=== PATIENT | female | born 1985 | race Caucasian/White ===

== ENCOUNTER 2021-08-07 10:53 | Outpatient (CLI) | payer SELFPAY ==
[~2021-08-07] VITALS: Ht 152.4 cm; Wt 86.2 kg
[~2021-08-07 10:53] MED LIST: NITR100C3 PO; PHENERGAN; PREN1TAB39
[2021-08-07] MEDS ORDERED: ONDANSETRON 4 MG/2 ML (SDV) Z0FRAN IV PRN (11:00)
[2021-08-07] MEDS ORDERED: diphenhydrAMINE 50 MG/ML INJ (BENADRYL) IV PRN (11:00)
[2021-08-07] MEDS ORDERED: SOTROVIMAB 500 MG/NS 50 ML IVPB IV ONE ×2 (11:00)
[2021-08-07] MEDS ORDERED: EPINEPHrine INJECTION 1 MG/ML AMP IM PRN (11:00)
[2021-08-07] MEDS ORDERED: ACETAMINOPHEN 500 MG TAB (TYLENOL) PO PRN (11:00)
[2021-08-07 11:11] VITALS: BP 113/61
[2021-08-07 12:05] VITALS: BP 113/58
== END 2021-08-07 12:05 | disposition home or self-care (01) ==
LOC: INFUSION 10:53
PROVIDERS: ATTEND Pediatrics
DX: U07.1 COVID-19 (principal)

== ENCOUNTER 2022-08-28 18:19 | Emergency (ER) | payer BC ==
[~2022-08-28] VITALS: Ht 152.4 cm; Wt 83.0 kg
[2022-08-28 18:28] VITALS: BP 128/85
--- NOTE | 2022-08-28 18:41 | ED Headache ---
General Stated Complaint: HEADACHE, VISUAL DISTURBANCE, SINUS DRAINAGE Source: patient History of Present Illness Date Seen by Provider: Aug 28, 2022 Time Seen by Provider: 18:38 Initial Comments PT ARRIVES VIA POV FROM HOME C/O HEADACHE X 1 WEEK--HAS CHRONIC HEADACHES, STATES SHE FEELS LIKE HER HEAD IS IN A VICE PAIN IS MOSTLY TO BACK OF HEAD ALSO HAS CHRONIC SINUS INFECTIONS, HAS AN APPOINTMENT WITH OFFICE ASSISTANT 10/14/22. HAS CHRONIC SINUS DRAINAGE AND PRESSURE HAD VISION CHANGES EARLIER IN THE WEEK, BRIEFLY--BLURRY VISION. VISION IS NORMAL NOW. NO FEVER NO NAUSEA/VOMITING NO DIZZINESS NO PARESTHESIAS OR MOTOR DEFICITS TOOK IBUPROFEN AT 1515--NO RELIEF TAKES ZYRTEC AND EDY DAILY FOR SINUSES. SHE HAS NOT BEEN ON ANY ANTIBIOTICS IN A LONG TIME. SYMPTOMS ARE NO DIFFERENT TODAY IN ANY WAY (WEDNESDAY EVENING) HAS NOT SOUGHT CARE UNTIL TODAY LMP 3 WEEKS AGO. NORMAL. S/P BTL PT HAS HAD COVID VACCINE X 2. NO FLU VACCINE PCP: [facility] Allergies and Home Medications Allergies Coded Allergies: No Known Drug Allergies (Verified Allergy, Unknown, 10/31/09) Patient Home Medication List Home Medication List Reviewed: Yes , (Reported) Entered as Reported by: SHREYAS EVANS on 03/28/091946 Amoxicillin/Potassium Clav (Amox Tr-K Clv 875-125 mg Tab) 875 Mg-125 Mg Tablet, 1 EACH PO BID Prescribed by: EYAD BOONE on 08/28/221940 Azelastine HCl (Azelastine HCl) 137 Mcg (0.1 %) Mccarley.pump, 137 MCG NS BID Prescribed by: EYAD BOONE on 08/28/221940 Cetirizine HCl/Pseudoephedrine (Zyrtec-D Tablet) 5 Mg-120 Mg Tab.er.12h, 1 EACH PO BID Prescribed by: EYAD BOONE on 08/28/221941 Fluticasone Propionate (Flonase Allergy Relief) 50 Mcg/Actuation Mccarley.susp, 2 SPRAY NS DAILY Prescribed by: EYAD BOONE on 08/28/221940 Ketorolac Tromethamine (Ketorolac Tromethamine) 10 Mg Tablet, 10 MG PO Q6H Prescribed by: EYAD BOONE on 08/28/221941 Vits W-Ca,Fe,Fa(<1MG) () 1 Each Tablet, (Reported) Entered as Reported by: SHREYAS EVANS on 03/28/091946 Review of Systems Review of Systems Constitutional: no symptoms reported; No chills, No diaphoresis, No dizziness, No fever, No malaise, No weakness Eyes: See HPI, Blurred Vision, Vision Changes Ears, Nose, Mouth, Throat: see HPI, nose discharge Respiratory: no symptoms reported Cardiovascular: no symptoms reported Gastrointestinal: no symptoms reported Genitourinary: no symptoms reported Musculoskeletal: no symptoms reported Skin: no symptoms reported Psychiatric/Neurological: See HPI, Headache; Denies Numbness, Denies Paresthesia, Denies Tingling, Denies Weakness Past Dnhjzzr-Xvpcxk-Suyvpa Hx Patient Social History Tobacco Use?: No Smoking Status: Never a Smoker Use of E-Cig and/or Vaping dev: No Substance use?: No Alcohol Use?: No Seasonal Allergies Seasonal Allergies: Yes Past Medical History Surgeries: Yes ( 2001) Section, Tubal Ligation Respiratory: No (HAD COVID 07/2021--HAD MAB INFUSION) Cardiac: No Neurological: Yes Headaches /Migraines : No Last Menstrual Period: Aug 07, 2022 Reproductive Disorders: No 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 oz. kg; BMI Method: General Appearance: WD/WN, no apparent distress HEENT: PERRL/EOMI, normal ENT inspection, TMs normal, pharynx normal, other (MILD MAXILLARY AND FRONTAL SINUS TENDERNESS. ) Neck: non-tender, full range of motion, supple, normal inspection Cardiovascular: regular rate, rhythm, no murmur Respiratory: normal breath sounds, no respiratory distress, no accessory muscle use Gastrointestinal: non tender, soft Extremities: normal inspection, normal capillary refill Psychiatric: alert, oriented x 3 Crainal Nerves: normal hearing, normal speech, PERRL Coordination/Gait: normal gait Motor/Sensory: no motor deficit, no sensory deficit Skin: normal color, warm/dry Progress/Results/Core Measures Results/Orders Lab Results Laboratory Tests Test 08/28/22 18:41 08/28/22 19:00 Range/Units White Blood Count 8.9 4.3-11.0 10^3/uL Red Blood Count 5.01 3.80-5.11 10^6/uL Hemoglobin 13.8 11.5-16.0 g/dL Hematocrit 42 35-52 % Mean Corpuscular Volume 84 80-99 fL Mean Corpuscular Hemoglobin 28 25-34 pg Mean Corpuscular Hemoglobin Concent 33 32-36 g/dL Red Cell Distribution Width 13.4 10.0-14.5 % Platelet Count 302 130-400 10^3/uL Mean Platelet Volume 10.9 9.0-12.2 fL Immature Granulocyte % (Auto) 0 % Neutrophils (%) (Auto) 55 42-75 % Lymphocytes (%) (Auto) 36 12-44 % Monocytes (%) (Auto) 6 0-12 % Eosinophils (%) (Auto) 3 0-10 % Basophils (%) (Auto) 0 0-10 % Neutrophils # (Auto) 4.8 1.8-7.8 10^3/uL Lymphocytes # (Auto) 3.2 1.0-4.0 10^3/uL Monocytes # (Auto) 0.5 0.0-1.0 10^3/uL Eosinophils # (Auto) 0.3 0.0-0.3 10^3/uL Basophils # (Auto) 0.0 0.0-0.1 10^3/uL Immature Granulocyte # (Auto) 0.0 0.0-0.1 10^3/uL Erythrocyte Sedimentation Rate 9 0-20 MM/HR Sodium Level 137 135-145 MMOL/L Potassium Level 4.1 3.6-5.0 MMOL/L Chloride Level 108 H 98-107 MMOL/L Carbon Dioxide Level 20 L 21-32 MMOL/L Anion Gap 9 5-14 MMOL/L Blood Urea Nitrogen 17 7-18 MG/DL Creatinine 0.88 0.60-1.30 MG/DL Estimat Glomerular Filtration Rate 87 BUN/Creatinine Ratio 19 Glucose Level 90 70-105 MG/DL Calcium Level 9.1 8.5-10.1 MG/DL Corrected Calcium 9.0 8.5-10.1 MG/DL Magnesium Level 2.2 1.6-2.4 MG/DL Total Bilirubin 0.3 0.1-1.0 MG/DL Aspartate Amino Transf (AST/SGOT) 18 5-34 U/L Alanine Aminotransferase (ALT/SGPT) 23 0-55 U/L Alkaline Phosphatase 68 40-136 U/L C-Reactive Protein High Sensitivity 1.55 H 0.00-0.50 MG/DL Total Protein 7.3 6.4-8.2 GM/DL Albumin 4.1 3.2-4.5 GM/DL Serum Test, Qualitative NEGATIVE NEGATIVE Influenza Type A (RT-PCR) Not Detected Not Detecte Influenza Type B (RT-PCR) Not Detected Not Detecte SARS-CoV-2 RNA (RT-PCR) Not Detected Not Detecte My Orders Orders - EYAD BOONE DO Ed Iv/Invasive Line Start (08/28/22 18:35) Ct Head/Face/Cervical Wo (08/28/22 18:35) Cbc With Automated Diff (08/28/22 18:35) Comprehensive Metabolic Panel (08/28/22 18:35) Hs C Reactive Protein (08/28/22 18:35) Hcg,Qualitative Serum (08/28/22 18:35) Magnesium (08/28/22 18:35) Erythrocyte Sedimentation Rate (08/28/22 18:35) Ed Iv/Invasive Line Start (08/28/22 18:35) Lactated Ringers (Lr 1000 Ml Iv Solution (08/28/22 18:45) Covid 19 Inhouse Test (08/28/22 18:41) Influenza A And B By Pcr (08/28/22 18:41) Isolation Central Supply Req (08/28/22 18:41) Ketorolac Injection (Toradol Injection) (08/28/22 19:30) Medications Given in ED Current Medications Medications Dose Ordered Sig/Samantha Route Start Time Stop Time Status Last Admin Dose Admin Ketorolac Tromethamine 30 mg ONCE ONCE IVP 08/28/22 19:30 08/28/22 19:31 DC 08/28/22 19:25 30 MG Lactated Ringer's 1,000 ml @ 0 mls/hr Q0M ONCE IV 08/28/22 18:45 2/3/23 18:46 DC 08/28/22 18:46 999 MLS/HR Vital Signs/I&O 08/28/22 18:28 Temp 36.2 Pulse 61 Resp 17 B/P (MAP) 128/85 (99) O2 Delivery Room Air Progress Progress Note : Progress Note PPE WORN COVID AND FLU TESTING DONE GIVEN TORADOL FOR HEADACHE UNEVENTFUL ER STAY REVIEWED PRIOR RECORDS, ONLY ADMITS WERE FOR /DELIVERY. LAST ER VISIT WAS IN 2008 DISCUSSED TEST RESULTS, ANTICIPATED COURSE, SYMPTOMATIC TREATMENT, MEDICATIONS, NEED FOR FOLLOW UP AND RETURN PRECAUTIONS DISCUSSED WITH PT. Diagnostic Imaging Comments CT HEAD/MAXILLOFACIALS/CERVICAL SPINE--PER RADIOLOGIST REPORT AT 1919 Head: There is no intracranial hemorrhage. No hydrocephalus, cerebral edema, mass, mass effect nor evidence for an elevation of the intracranial pressures. The basilar cisterns patent. No sulcal effacement. The dodge-white matter differentiations maintained. There are no abnormal extra-axial collections and no calvarial fracture deformity demonstrated. Facial bones: Mandible, maxilla, and pterygoid plates intact. The nasal bones and bony nasal septum intact. The right frontal sinus is aplastic. The left frontal hypoplastic but clear. There is no mastoid effusion. The middle ear cavities clear. There is some mild membrane thickening in the maxillary sinus floors, greater right. No hemo-sinus or air-fluid level. There is rightward nasal septal spurring chronic. The zygomatic arches intact. The bony orbital baker intact. No post septal or retrobulbar orbital hematoma. Cervical spine: Degenerative changes to the discs, endplates and facets chronic. The alignment within normal limits. The vertebral statures unremarkable. No cervical fracture. No paraspinal hemorrhage. Hyoid and tracheal cartilage showed no traumatic deformity. The craniocervical relationship and the central skull base intact. IMPRESSION: CT HEAD: No hemorrhage or acute abnormality CT FACIAL BONES: Some chronic paranasal sinus membrane disease but no facial fracture or hemo-sinus. CT cervical spine: No fracture or traumatic malalignment Reviewed: Reviewed by Me Departure Impression Primary Impression: Chronic headaches Additional Impression: Chronic sinusitis Disposition: HOME, SELF-CARE Condition: Stable Departure-Patient Inst. Decision time for Depature: 19:33 Referrals: DRU DAVIDSON,LOCAL PHYSICIAN (PCP) Primary Care Physician [facility] Patient Instructions: Headache, Adult (DC), Sinusitis, Adult (DC) Add. Discharge Instructions: HOLD YOUR ZYRTEC AND EDY FOR NOW START TAKING ZYRTEC-D DAILY, PRESCRIBED YOU MAY TAKE TYLENOL NEEDED FOR PAIN FOLLOW UP WITH [facility] NEXT WEEK FOR FURTHER CARE Scripts Ketorolac Tromethamine (Ketorolac Tromethamine) 10 Mg Tablet 10 MG PO Q6H for Pain, #15 TAB Prov: EYAD BOONE DO 08/28/22 Amoxicillin/Potassium Clav (Amox Tr-K Clv 875-125 mg Tab) 875 Mg-125 Mg Tablet 1 EACH PO BID for 15 Days, #30 TAB Prov: EYAD BOONE DO 08/28/22 Azelastine HCl (Azelastine HCl) 137 Mcg (0.1 %) Mccarley.pump 137 MCG NS BID, #1 EA Prov: EYAD BOONE DO 08/28/22 Fluticasone Propionate (Flonase Allergy Relief) 50 Mcg/Actuation Mccarley.susp 2 SPRAY NS DAILY, #1 EACH 2 SPRAYS PER NOSTRIL DAILY X 2 DAYS THEN 1 SPRAY DAILY Prov: EYAD BOONE DO 08/28/22 Cetirizine HCl/Pseudoephedrine (Zyrtec-D Tablet) 5 Mg-120 Mg Tab.er.12h 1 EACH PO BID, #30 TAB Prov: EYAD BOONE DO 08/28/22 EYAD BOONE DO Aug 28, 2022 18:41
[2022-08-28] MEDS ORDERED: LACTATED RINGERS 1,000 ML IV ONE (18:45)
[2022-08-28 18:47] LABS: BASOPHILS % (AUTO) 0 % (0-10); EOSINOPHILS # (AUTO) 0.3 10^3/uL (0.0-0.3); EOSINOPHILS % (AUTO) 3 % (0-10); HEMATOCRIT 42 % (35-52); HEMOGLOBIN 13.8 g/dL (11.5-16.0); LYMPHOCYTES # (AUTO) 3.2 10^3/uL (1.0-4.0); LYMPHOCYTES % (AUTO) 36 % (12-44); MEAN CORPUSCULAR HEMOGLOBIN 28 pg (25-34); MEAN CORPUSCULAR HGB CONC 33 g/dL (32-36); MEAN CORPUSCULAR VOLUME 84 fL (80-99); MEAN PLATELET VOLUME 10.9 fL (9.0-12.2); MONOCYTES # (AUTO) 0.5 10^3/uL (0.0-1.0); MONOCYTES % (AUTO) 6 % (0-12); NEUTROPHILS # (AUTO) 4.8 10^3/uL (1.8-7.8); NEUTROPHILS % (AUTO) 55 % (42-75); PLATELET COUNT 302 10^3/uL (130-400); WHITE BLOOD COUNT 8.9 10^3/uL (4.3-11.0)
[2022-08-28 19:02] LABS: ALBUMIN 4.1 GM/DL (3.2-4.5); POTASSIUM 4.1 MMOL/L (3.6-5.0)
[2022-08-28 19:03] LABS: CALCIUM 9.1 MG/DL (8.5-10.1)
[2022-08-28 19:04] LABS: TOTAL PROTEIN 7.3 GM/DL (6.4-8.2)
[2022-08-28 19:06] LABS: BILIRUBIN,TOTAL 0.3 MG/DL (0.1-1.0)
[2022-08-28 19:07] LABS: ERYTHROCYTE SEDIMENTATION RATE 9 MM/HR (0-20)
[2022-08-28 19:08] LABS: CREATININE SERUM 0.88 MG/DL (0.60-1.30)
[2022-08-28 19:11] LABS: MAGNESIUM 2.2 MG/DL (1.6-2.4)
--- NOTE | 2022-08-28 19:12 | Diagnostic Imaging Report ---
PROCEDURE: CT head, face, and cervical spine without contrast. TECHNIQUE: Multiple contiguous axial images were obtained through the head, neck, and facial bones without the use of intravenous contrast. Sagittal and coronal reformations through the cervical spine and facial bones were also performed. Auto Exposure Controls were utilized during the CT exam to meet ALARA standards for radiation dose reduction. INDICATION: Head pain, visual disturbances, sinus drainage, recent head trauma. No priors. Head: There is no intracranial hemorrhage. No hydrocephalus, cerebral edema, mass, mass effect nor evidence for an elevation of the intracranial pressures. The basilar cisterns patent. No sulcal effacement. The dodge-white matter differentiations maintained. There are no abnormal extra-axial collections and no calvarial fracture deformity demonstrated. Facial bones: Mandible, maxilla, and pterygoid plates intact. The nasal bones and bony nasal septum intact. The right frontal sinus is aplastic. The left frontal hypoplastic but clear. There is no mastoid effusion. The middle ear cavities clear. There is some mild membrane thickening in the maxillary sinus floors, greater right. No hemo-sinus or air-fluid level. There is rightward nasal septal spurring chronic. The zygomatic arches intact. The bony orbital baker intact. No post septal or retrobulbar orbital hematoma. Cervical spine: Degenerative changes to the discs, endplates and facets chronic. The alignment within normal limits. The vertebral statures unremarkable. No cervical fracture. No paraspinal hemorrhage. Hyoid and tracheal cartilage showed no traumatic deformity. The craniocervical relationship and the central skull base intact. IMPRESSION: CT HEAD: No hemorrhage or acute abnormality CT FACIAL BONES: Some chronic paranasal sinus membrane disease but no facial fracture or hemo-sinus. CT cervical spine: No fracture or traumatic malalignment Dictated by: Dictated on workstation # [id number]
[2022-08-28] MEDS ORDERED: KETOROLAC 30 MG/ML VIAL IVP ONE (19:30)
[2022-08-28] MEDS ORDERED: AMOX1TAB12 PO (19:41)
[2022-08-28] MEDS ORDERED: AZEL137S11 NS (19:41)
[2022-08-28] MEDS ORDERED: CETI1TAB61 PO (19:41)
[2022-08-28] MEDS ORDERED: FLUT9.9S NS (19:41)
[2022-08-28] MEDS ORDERED: KETO10TA PO (19:42)
== END 2022-08-28 19:59 | disposition home or self-care (01) ==
LOC: EDUNIT# 18:19 → ER 18:22
DX: J32.9 Chronic sinusitis, unspecified (principal); Z86.16 Personal history of COVID-19; Z20.822 Contact with and (suspected) exposure to COVID-19
CPT/HCPCS: 36415; 70450; 70486; 72125; 80053; 83735; 84703; 85025; 85652; 86141; 87636; 99281

== ENCOUNTER 2022-10-22 05:31 | Outpatient (CLI) | payer BC ==
[~2022-10-22] VITALS: Ht 152.4 cm; Wt 78.6 kg
[~2022-10-22 05:31] MED LIST changes: +AMOX1TAB12 PO; +AZEL137S11 NS; +CETI1TAB61 PO; +FLUT9.9S NS; +KETO10TA PO
[2022-10-22] MEDS ORDERED: BACL5TAB PO (13:29)
[2022-10-22] MEDS ORDERED: [UNRECOGNIZED DRUG - CODE] PO (13:29)
== END 2022-10-22 13:54 | disposition home or self-care (01) ==
LOC: PREOP 05:31
PROVIDERS: ATTEND Otolaryngology Otolaryngology/Facial Plastic Surgery
DX: Z01.818 Encounter for other preprocedural examination (principal)

== ENCOUNTER 2022-10-29 06:28 | Day surgery (SDC) | payer BC ==
[~2022-10-29] VITALS: Ht 152 cm; Wt 78.6 kg
[2022-10-29] VITALS (10 sets, daily range): BP systolic 121–143; BP diastolic 75–95
[~2022-10-29 06:28] MED LIST changes: +BACL5TAB PO; +[UNRECOGNIZED DRUG - CODE] PO
[2022-10-29] MEDS ORDERED: HYDROCORTISONE 100 MG/2 ML (Solu-CORTEF) VIAL IV ONE (06:30)
[2022-10-29] MEDS ORDERED: AMPICILLIN/SULBACTAM INJECTION 1.5 GM in NS (IVPB) 100 ML IV ONE (06:30)
--- NOTE | 2022-10-29 06:55 | Progress Note-Pre Operative ---
Pre-Operative Progress Note Date of Available H&P: Oct 29, 2022 Date H&P Reviewed: Oct 29, 2022 Time H&P Reviewed: 06:30 History & Physical: H&P Reviewed, Patient Examed, No changes noted Changes from last HP none Pre-Operative Diagnosis: Bilat Chronci Sinusitis, Deviated SEptum, Bialt Hyper of INf Turbs SILVANA PALMA MD Oct 29, 2022 06:55
--- NOTE | 2022-10-29 06:56 | Progress Note-Post Operative ---
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 Specimen(s) collected/removed Bialt Chronic Sinusitis, Nasl Septum SILVANA PALMA MD Oct 29, 2022 06:56
[2022-10-29] MEDS ORDERED: HYDROcodone/APAP 5 MG/325 MG (LORTAB) TAB PO PRN (07:00)
[2022-10-29] MEDS ORDERED: ONDANSETRON 4 MG/2 ML (SDV) Z0FRAN IV ONE (07:00)
[2022-10-29] MEDS ORDERED: D5 1/2 NS W/KCL 20 MEQ/L 1,000 ML IV SCH (07:00)
[2022-10-29] MEDS ORDERED: FAMOTIDINE 20MG/2ML IV (PEPCID) IV ONE (07:00)
[2022-10-29] MEDS ORDERED: SCOPOLAMINE 1.5 MG (TRANSDERM-SCOP) PATCH TOP ONE (07:00)
[2022-10-29] MEDS ORDERED: predniSONE 20 MG TAB PO ONE ×2 (07:00→11:00)
[2022-10-29] MEDS ORDERED: PROMETHAZINE INJ 25 MG/ML (PHENERGAN) AMP IVP PRN (07:00)
[2022-10-29 07:01] LABS: BASOPHILS # (AUTO) 0.1 10^3/uL (0.0-0.1); BASOPHILS % (AUTO) 1 % (0-10); EOSINOPHILS # (AUTO) 0.8 10^3/uL (0.0-0.3); EOSINOPHILS % (AUTO) 6 % (0-10); HEMATOCRIT 43 % (35-52); HEMOGLOBIN 14.2 g/dL (11.5-16.0); LYMPHOCYTES # (AUTO) 6.7 10^3/uL (1.0-4.0); LYMPHOCYTES % (AUTO) 45 % (12-44); MEAN CORPUSCULAR HEMOGLOBIN 28 pg (25-34); MEAN CORPUSCULAR HGB CONC 33 g/dL (32-36); MEAN CORPUSCULAR VOLUME 85 fL (80-99); MEAN PLATELET VOLUME 10.8 fL (9.0-12.2); MONOCYTES # (AUTO) 0.7 10^3/uL (0.0-1.0); MONOCYTES % (AUTO) 5 % (0-12); NEUTROPHILS # (AUTO) 6.5 10^3/uL (1.8-7.8); NEUTROPHILS % (AUTO) 44 % (42-75); PLATELET COUNT 328 10^3/uL (130-400); WHITE BLOOD COUNT 14.9 10^3/uL (4.3-11.0)
[2022-10-29 07:08] LABS: POTASSIUM 4.4 MMOL/L (3.6-5.0)
[2022-10-29 07:09] LABS: CALCIUM 9.2 MG/DL (8.5-10.1)
[2022-10-29 07:14] LABS: CREATININE SERUM 0.91 MG/DL (0.60-1.30)
[2022-10-29] MEDS ORDERED: PHENYLEPHRINE 0.5% NASAL SPR (NEO-SYNEPHRINE) REG ONE (07:15)
[2022-10-29] MEDS ORDERED: COCAINE HCL 4% 2 ML SYR ONE (07:15)
[2022-10-29] MEDS ORDERED: BSS 15 ML ONE (07:15)
[2022-10-29] MEDS ORDERED: LIDOCAINE/EPI 1%-1:100,000 (XYLOCAINE) 20ML ONE (07:15)
[2022-10-29] MEDS ORDERED: MUPIROCIN 2% OINT 22 GM (BACTROBAN) TUBE ONE (07:15)
[2022-10-29] MEDS: LACTATED RINGERS 1,000 ML IV PRN ×2 (07:16→08:13)
[2022-10-29] MEDS ORDERED: MIDAZOLAM 2 MG/2 ML (VERSED) VIAL ONE (07:25)
[2022-10-29] MEDS ORDERED: ONDANSETRON 4 MG/2 ML (SDV) Z0FRAN ONE (07:25)
[2022-10-29] MEDS ORDERED: LIDOCAINE PF 2% 5 ML (XYLOCAINE) VIAL ONE (07:25)
[2022-10-29] MEDS ORDERED: GLYCOPYRROLATE 0.2 MG/ML (ROBINUL) 2 ML VIAL ONE (07:25)
[2022-10-29] MEDS ORDERED: proPOfol 200 MG/20 ML (DIPRIVAN) VIAL IV ONE (07:25)
[2022-10-29] MEDS ORDERED: fentaNYL INJ 100 MCG/2 ML AMP ONE (07:25)
[2022-10-29] MEDS ORDERED: NEOSTIGMINE (BLOXIVERZ ) 1 MG/1ML 10 ML VIAL ONE (07:26)
[2022-10-29 07:43] LABS: BAND NEUTROPHILS 0 %; BASOPHILS % (MANUAL) 0 %; EOSINOPHILS % (MANUAL) 5 %; LYMPHOCYTES % (MANUAL) 49 %; MONOCYTES % (MANUAL) 2 %; NEUTROPHILS % (MANUAL) 44 %; RBC MORPH NORMAL
[2022-10-29] MEDS ORDERED: ROCURONIUM 50 MG/5 ML (ZEMURON) VIAL IV ONE (08:29)
[2022-10-29] MEDS ORDERED: HYDROmorphone 2 MG/ML VIAL (DILAUDID) IV ONE (09:00)
[2022-10-29] MEDS ORDERED: ONDANSETRON 4 MG/2 ML (SDV) Z0FRAN IVP PRN (09:00)
[2022-10-29] MEDS ORDERED: morphine INJ 10 MG/ML 1ML (SYR OR VIAL) IVP ONE (09:00)
[2022-10-29] MEDS ORDERED: ACHD5005 PO (09:05)
[2022-10-29] MEDS ORDERED: PRD20T PO (09:05)
[2022-10-29] MEDS ORDERED: AMOX-355 PO (09:05)
--- NOTE | 2022-10-29 12:31 | Anesthesia-General Post-Op ---
General Patient Condition Mental Status/LOC: Same as Preop Cardiovascular: Satisfactory Nausea/Vomiting: Absent Respiratory: Satisfactory Pain: Controlled Complications: Absent Post Op Complications Complications None Follow Up Care/Instructions Patient Instructions None needed. Anesthesia/Patient Condition Patient Condition Patient was doing well after the procedure with no complaints, stable vital signs, no apparent adverse anesthesia problems. No complications reported per nursing. CLEO SPARKS DO Oct 29, 2022 12:31
== END 2022-10-29 11:00 | disposition home or self-care (01) ==
LOC: SDC 06:28
PROVIDERS: ATTEND Otolaryngology Otolaryngology/Facial Plastic Surgery
DX: J32.9 Chronic sinusitis, unspecified (principal); J34.2 Deviated nasal septum; J98.8 Other specified respiratory disorders; J34.3 Hypertrophy of nasal turbinates; R09.81 Nasal congestion; G47.33 Obstructive sleep apnea (adult) (pediatric); G43.909 Migraine, unspecified, not intractable, without status migrainosus; E66.9 Obesity, unspecified; Z68.34 Body mass index [BMI] 34.0-34.9, adult; Z99.81 Dependence on supplemental oxygen; Z79.899 Other long term (current) drug therapy
CPT/HCPCS: 36415; 80048; 84703; 85007; 85027; 87081